=== PATIENT | female | born 1965 | race Caucasian/White ===

== ENCOUNTER 2020-07-04 09:44 | Emergency (ER) | payer MEDICARE, OTHER ==
[~2020-07-04 09:44] MED LIST: FLEXERIL5 MG PO; MEDROL 4MG DOSEP4 MG PO
[2020-07-04 11:32] LABS: BASOPHIL 0.3 % (0-2); EOSINOPHIL 1.1 % (0-5); HCT 43.9 % (37.0-47.0); HGB 14.3 g/dl (12.5-16.0); LYMPHOCYTE 25.1 % (15-48); MCH 26.4 pg (25.0-31.0); MCHC 32.6 g/dL (32.0-36.0); MONOCYTE 8.4 % (0-12); MPV 10.9 fL (6.0-9.5); NEUTROPHIL 64.8 % (41-80); NRBC 0; RBC 5.42 M/uL (4.20-5.40); RDW 14.2 % (11.5-14.0); WBC 3.8 K/uL (4.0-10.5)
[2020-07-04 11:32] LABS: BILIRUBIN NEGATIVE (NEGATIVE); BLOOD TRACE-INTACT Ery/uL (NEGATIVE); CLARITY CLEAR (CLEAR); COLOR YELLOW (YELLOW); GLUCOSE (U) 3+ mg/dL (NORMAL); LEUKOCYTES TRACE Leu/uL (NEGATIVE); NITRITE NEGATIVE (NEGATIVE); PROTEIN NEGATIVE (NEGATIVE); SPECIFIC GRAVITY 1.015 (1.001-1.030); UROBILINOGEN 0.2 mg/dL (0.2-1.0)
[2020-07-04 11:35] LABS: PLT 66 K/uL (150-400)
[2020-07-04 11:46] LABS: BACTERIA TRACE
[2020-07-04 11:55] LABS: ALBUMIN 3.2 g/dL (3.4-5.0); BILIRUBIN - TOTAL 0.5 mg/dL (0.2-1.0); BUN/CREAT RATIO (CALC) 26.2 RATIO; CREATININE 0.42 mg/dL (0.51-0.95); GLOBULIN (CALCULATION) 4.1 g/dL; POTASSIUM 4.4 mmol/L (3.5-5.1); TOTAL PROTEIN 7.3 g/dL (6.4-8.2)
[2020-07-04] MEDS ORDERED: MACROBID100 MG PO (12:18)
[2020-09-28] MEDS ORDERED: NALTREXONE HCL PO (13:30)
== END 2020-07-04 12:28 | disposition home or self-care (01) ==
LOC: FER 09:44
PROVIDERS: Emergency Medicine
DX: N39.0 Urinary tract infection, site not specified (principal); R10.12 Left upper quadrant pain; I10 Essential (primary) hypertension; Z88.0 Allergy status to penicillin; Z88.1 Allergy status to other antibiotic agents; Z88.5 Allergy status to narcotic agent; Z88.8 Allergy status to other drugs, medicaments and biological substances; Z91.040 Latex allergy status
CPT/HCPCS: 36415; 80053; 81001; 83690; 85025; 99284